=== PATIENT | female | born 1960 | race Caucasian/White ===

== ENCOUNTER 2016-11-22 10:00 | Outpatient (RCR) ==
--- NOTE | 2016-11-16 14:15 | RS.OPPTEV2 ---
Date of Note: 11/14/16 Visit #: 1 Date of Evaluation: 11/14/16 Payer Source: MEDICARE Treatment Diagnosis: Right shoulder pain, right shoulder stiffness History of Condition/Mechanism of Injury:: Patient progressive right shoulder pain since 2014. She received an injection in the right shoulder two weeks ago. Prior Level of Function.....Patient was independent with: ADL's, Self Care, Caregiving, Ambulation/Mobility, Community Integration/Access Functional Limitations: Sleep, Self Care, ADL's, Reaching, Pushing, Pulling, Lifting, Carrying, Community Access/Integration Current Subjective/complaints:: Patient reports right shoulder pain. States her movement and level of discomfort have been better since receiving the injection. States she is right hand dominant and any reaching or lifting, causes increased pain. States she has difficulty with ADL's and some selfcare due to pain with use of the right UE. States she cannot tolerate laying on the right shoulder. She has slept in the recliner at times, due to difficulty sleeping in her bed. Treatment Side (optional): Right Medical History Medical History: Hypertension, Diabetes, Arthritis Surgical History: Cholecystectomy, Tonsillectomy Surgical History Comments:: ORIF right foot Hx Home Medications: Gabapentin, Metformin, Lisinopril, Aspirin Patient's Goals: Her goal is to get relief of right shoulder pain. Pain Assessment - Pain Description Pain Location: right shoulder Pain Description: Sharp (with certain movements), Aching Current Pain Intensity: 5/10 Worst Pain Intensity: 9/10 Functional Outcome Measure UE Functional Index: 43 (43/80=46.25% impairment) - G Codes & Severity Modifier G Codes & Modifier: Carry current CK. Carry goal CI Source of G Code score: UE functional index Observation - Observation Posture: Forward Head, Rounded Shoulders Handedness: Right Shoulder ROM: Left WFL's Shoulder Muscle Strength: Left WFL's - Right Shoulder ROM Right Shoulder Flexion: 113 (degrees AROM) Right Shoulder Abduction: 56 (degrees AROM) Right Shoulder Internal Rotation: 50 (degrees AROM) Right Shoulder External Rotation: 40 (degrees AROM) Right Shoulder ROM Limitations: Pain Comments: ER limited by pain and muscle tightness. Flexion and abduction limited by pain. PROM is also limited due to pain and muscle tightness into ER to 45-50 degrees. PROM into flexion to 120 degrees, abduction to 80 degrees. - Right Shoulder Strength Right Shoulder Flexion: 4+ Good + Right Shoulder Extension: 5 Normal Right Shoulder Abduction: 4 Good Right Shoulder Adduction: 5 Normal Right Shoulder External Rotation: 4 Good Right Shoulder Internal Rotation: 4 Good - Special Tests Shoulder Empty Can (Supraspinatus) Test: Negative Left, Positive Right Shoulder Speed's Sign Test: Negative Left, Positive Right Shoulder Drop Arm Test: Negative Left, Negative Right Shoulder Gilliland-Jamin Impingement Test: Negative Left, Positive Right Palpation Comments:: Reports tenderness over the long head of the biceps tendon in the bicipital groove of the right shoulder. Reports no tenderness over the insertion site of the supraspinatus and infraspinatus tendons. Sensation - Sensation Right Upper Extremity: Intact/Normal Left Upper Extremity: Intact/Normal - Treatment Modality: Ultrasound Parameters/Method Applied: 1.5 w/cm2 continuous X 9 mins to right anterior and middle shoulder region. Patient Position: Sitting Interventions - Exercise/Activities/Manual Therapy Exercises/Activities: Patient instructed in pendulum and RTC series for HEP. Advised to perform these in a pain-free range. Manual Therapy: NA HOME EXERCISE PROGRAM: pendulum and RTC series - Charges Total Direct Minutes: 55 mins Total Treatment Time: 55 mins Procedures billed for this date of service:: SWEETIE Mccain, Assessment Assessment: Patient presents to therapy with a diagnosis of right shoulder pain , bursitis. She reports pain with reaching and lifting with the right UE, and difficulty with ADL's. She exhibits limited AROM and PROM of the right shoulder. She exhibits involvement of the biceps tendon with a positive Speeds Test and tenderness over the bicep tendon. Special tests of Impingement and Supraspinatus tests are also positive on the right UE. She demonstrates potential to benefit from modalities to reduce inflammation and exercises to improve strength of humeral depressors and regain right shoulder AROM. Patient Education: Education of diagnosis, Body/Joint mechanics, Home Exercise Program, Home Safety, Education of Plan of Care Rehab Potential: Good Short Term Goals Goal #1: PROM of the right shoulder WFL's. Goal to be met by: 11/30/16 Goal #2: Right shoulder ER to 60 degrees. Goal to be met by: 11/30/16 Goal #3: Tenderness over the anterior region of the right shoulder decreased to min. Goal to be met by: 11/30/16 Goal #4: Pt to demonstrate improved postural awareness. Goal to be met by: 11/30/16 Fpc Goals Goal #1: Pt knows HEP and to continue ex's to maintain functional level at D/C. Goal to be met by: 12/26/16 Goal #2: Score on UE functional index improved to <19% impairment. Goal to be met by: 12/26/16 Goal #3: Patient able to use right UE for ADL's and reaching activities w/o pain. Goal to be met by: 12/26/16 Goal #4: Pt able to sleep in bed without interruption from right shoulder pain. Goal to be met by: 12/26/16 Plan - Treatment to be Provided Procedures: Therapeutic Exercises, Therapeutic Activity, Manual Therapy, Patient Education Modalities: Electrical Stimulation, Ultrasound/Phonophoresis, Cryotherapy, Hot Packs - Treatment Plan Frequency: 3 X week Duration: 4 weeks ORDER # VISITS AND/OR THROUGH DATE: 12/26/16 - Treatment Code (1) Right shoulder pain Qualifiers: Chronicity: acute Qualified Description: Acute pain of right shoulder Qualifier Code(s): (M25.511) Pain in right shoulder (2) Bursitis Qualifiers: Bursitis location: shoulder Laterality: right Qualified Description : Bursitis of right shoulder Qualifier Code(s): (M75.51) Bursitis of right shoulder (3) Biceps tendinopathy Qualifiers: Laterality: right Qualified Description: Biceps tendinopathy, right Qualifier Code(s): (M67.921) Unspecified disorder of synovium and tendon, right upper arm
--- NOTE | 2016-11-19 14:06 | RS.OPPTDN ---
Subjective Date of Note: 11/19/16 Visit #: 2 Date of Evaluation: 11/14/16 Payer Source: MEDICARE Treatment Diagnosis: Right shoulder pain, right shoulder stiffness Current Subjective/complaints:: Patient reports first treatment reduced pain and she is working on HEP as instructed. Pain Assessment - Pain Description Pain Location: right shoulder Pain Description: Sharp (with certain movements), Aching Current Pain Intensity: 5/10 - Treatment Modality: Ultrasound Parameters/Method Applied: [id number] at 1.5w/cm2 to the right shoulder joint prior to EX. Patient in sitting. Patient Position: Sitting - Heat/Cryotherapy Treatment: Hot Pack ([id number] to the right shoulder prior to US and EX. Patient in sitting. ) Interventions - Exercise/Activities/Manual Therapy Exercises/Activities: [id number] PROM of the right shoulder joint. Isometrics for shoulder add, ext, IR, and ER. Pendulum and reviewed RTC series. Ball on the wall. Total minutes of Exercise: 15mins Manual Therapy: NA HOME EXERCISE PROGRAM: pendulum and RTC series, ball on wall, isometric shoulder add and ext with pillow. - Charges Total Direct Minutes: 27mins Total Treatment Time: 42mins Procedures billed for this date of service:: HP, US, EX Assessment: Patient responding well to treatment and seems to be motivated to work on HEP. Patient Education: Home Exercise Program Patient demonstrates compliance with HEP?: Yes Short Term Goals Goal #1: PROM of the right shoulder WFL's. Goal to be met by: 11/30/16 Progress towards Goal:: Progressing Goal #2: Right shoulder ER to 60 degrees. Goal to be met by: 11/30/16 Goal #3: Tenderness over the anterior region of the right shoulder decreased to min. Goal to be met by: 11/30/16 Goal #4: Pt to demonstrate improved postural awareness. Goal to be met by: 11/30/16 Usp Goals Goal #1: Pt knows HEP and to continue ex's to maintain functional level at D/C. Goal to be met by: 12/26/16 Goal #2: Score on UE functional index improved to <19% impairment. Goal to be met by: 12/26/16 Goal #3: Patient able to use right UE for ADL's and reaching activities w/o pain. Goal to be met by: 12/26/16 Goal #4: Pt able to sleep in bed without interruption from right shoulder pain. Goal to be met by: 12/26/16 Plan PLAN OF CARE EXPIRES ON:: 12/26/16 ORDER # VISITS AND/OR THROUGH DATE: 12/26/16 PLAN: Continue Plan of Care
--- NOTE | 2016-11-22 11:17 | RS.OPPTDN ---
Subjective Date of Note: 11/22/16 Visit #: 3 Date of Evaluation: 11/14/16 Payer Source: MEDICARE Treatment Diagnosis: Right shoulder pain, right shoulder stiffness Current Subjective/complaints:: Patient reports treatment is helping reduce pain in the right shoulder. States she is working on HEP and is able to lift arm higher into flexion. Pain Assessment - Pain Description Pain Location: right shoulder Pain Description: Sharp (with certain movements), Aching Current Pain Intensity: 2-3/10 Other Comments regarding Pain:: Reports a quick pinch with some movements, but no longer has sharp pain. - Treatment Modality: Ultrasound Parameters/Method Applied: [id number] at 1.5w/cm2 to the right shoulder joint and upper arm prior to EX. Patient in sitting. Patient Position: Sitting - Heat/Cryotherapy Treatment: Hot Pack ([id number] to the right shoulder prior to US and EX. Patient in sitting. ) Interventions - Exercise/Activities/Manual Therapy Exercises/Activities: [id number] PROM of the right shoulder joint. Isometrics for shoulder add, ext, flexion, abd, IR, and ER. Right shoulder AA flexion, scaption, and abduction, multiple sets of 5reps. Total minutes of Exercise: 20mins Manual Therapy: NA HOME EXERCISE PROGRAM: pendulum and RTC series, ball on wall, isometric shoulder add and ext with pillow. Isometric shoulder IR and ER. - Charges Total Direct Minutes: 30mins Total Treatment Time: 45mins Procedures billed for this date of service:: HP, US, EX Assessment: Patient responding well to treatment and appears to be working on HEP. Patient Education: Body/Joint mechanics, Home Exercise Program, Home Safety, Activity Modification Patient demonstrates compliance with HEP?: Yes Short Term Goals Goal #1: PROM of the right shoulder WFL's. Goal to be met by: 11/30/16 Progress towards Goal:: Progressing Goal #2: Right shoulder ER to 60 degrees. Goal to be met by: 11/30/16 Progress towards Goal:: Progressing Goal #3: Tenderness over the anterior region of the right shoulder decreased to min. Goal to be met by: 11/30/16 Progress towards Goal:: Progressing Goal #4: Pt to demonstrate improved postural awareness. Goal to be met by: 11/30/16 Progress towards Goal:: Progressing Snf Goals Goal #1: Pt knows HEP and to continue ex's to maintain functional level at D/C. Goal to be met by: 12/26/16 Goal #2: Score on UE functional index improved to <19% impairment. Goal to be met by: 12/26/16 Goal #3: Patient able to use right UE for ADL's and reaching activities w/o pain. Goal to be met by: 12/26/16 Goal #4: Pt able to sleep in bed without interruption from right shoulder pain. Goal to be met by: 12/26/16 Plan PLAN OF CARE EXPIRES ON:: 12/26/16 ORDER # VISITS AND/OR THROUGH DATE: 12/26/16 PLAN: Progress Exercises (Continue modalities and progress exericse to reduce pain and increase functional use of the right UE.)
== END 2016-11-26 ==
PROVIDERS: ATTEND Orthopaedic Surgery
DX: M75.51 Bursitis of right shoulder (principal); M25.511 Pain in right shoulder

== ENCOUNTER 2016-12-07 10:00 | Outpatient (RCR) ==
--- NOTE | 2016-11-28 16:15 | RS.OPPTDN ---
Subjective Date of Note: 11/28/16 Visit #: 4 Date of Evaluation: 11/14/16 Payer Source: MEDICARE Treatment Diagnosis: Right shoulder pain, right shoulder stiffness Current Subjective/complaints:: Patient reports she is doing better with active reaching. Pain Assessment - Pain Description Pain Location: right shoulder Current Pain Intensity: 2/10 - Treatment Modality: Ultrasound Parameters/Method Applied: [id number] at 1.5w/cm2 to the right shoulder prior to EX. - Heat/Cryotherapy Treatment: Hot Pack ([id number] to the right shoulder prior to US and EX. Patient in sitting. ) Interventions - Exercise/Activities/Manual Therapy Exercises/Activities: [id number] PROM of the right shoulder joint. Isometrics for shoulder add, ext, flexion, abd, IR, and ER. Right shoulder AA flexion, scaption, and abduction, multiple sets of 5reps. Shoulder pulleys. Total minutes of Exercise: 20mins Manual Therapy: NA HOME EXERCISE PROGRAM: pendulum and RTC series, ball on wall, isometric shoulder add and ext with pillow. Isometric shoulder IR and ER. - Objective Findings Observations,measurements,etc.: Active right shoulder flexion to 160 degrees and abduction to approx 130 degrees. - Charges Total Direct Minutes: 30mins Total Treatment Time: 50mins Procedures billed for this date of service:: HP, US, EX Assessment: Patient progressing well and appears to be working on HEP. Patient Education: Home Exercise Program Patient demonstrates compliance with HEP?: Yes Short Term Goals Goal #1: PROM of the right shoulder WFL's. Goal to be met by: 11/30/16 Progress towards Goal:: Progressing Goal #2: Right shoulder ER to 60 degrees. Goal to be met by: 11/30/16 Progress towards Goal:: Progressing Goal #3: Tenderness over the anterior region of the right shoulder decreased to min. Goal to be met by: 11/30/16 Progress towards Goal:: Progressing Goal #4: Pt to demonstrate improved postural awareness. Goal to be met by: 11/30/16 Progress towards Goal:: Progressing Rn Rehab Goals Goal #1: Pt knows HEP and to continue ex's to maintain functional level at D/C. Goal to be met by: 12/26/16 Goal #2: Score on UE functional index improved to <19% impairment. Goal to be met by: 12/26/16 Goal #3: Patient able to use right UE for ADL's and reaching activities w/o pain. Goal to be met by: 12/26/16 Goal #4: Pt able to sleep in bed without interruption from right shoulder pain. Goal to be met by: 12/26/16 Plan PLAN OF CARE EXPIRES ON:: 12/26/16 ORDER # VISITS AND/OR THROUGH DATE: 12/26/16 PLAN: Continue Plan of Care (Continue to progress strength and ROM of right shoulder to increase functional activity level.)
--- NOTE | 2016-11-30 13:01 | RS.OPPTDN ---
Subjective Date of Note: 11/30/16 Visit #: 5 Date of Evaluation: 11/14/16 Payer Source: MEDICARE Treatment Diagnosis: Right shoulder pain, right shoulder stiffness Current Subjective/complaints:: Patient reports continued improvement in active reaching. States she continues to have a sharp pain with reaching outward to the side. Pain Assessment - Pain Description Pain Location: right shoulder Current Pain Intensity: 2/10 - Treatment Modality: Ultrasound Parameters/Method Applied: [id number] @ 1.5w/cm2 to the right shoulder prior to EX. Patient in sitting. Patient Position: Sitting - Heat/Cryotherapy Treatment: Hot Pack ([id number] to the right shoulder prior to US and EX. Patient in sitting. ) Interventions - Exercise/Activities/Manual Therapy Exercises/Activities: [id number] PROM of the right shoulder joint. Isometrics for shoulder add, ext, flexion, abd, IR, and ER. Right shoulder AA flexion, scaption, and abduction, multiple sets of 5reps. Wand for active flexion overhead. Red theraband for bilateral shoulder ER. Total minutes of Exercise: 20mins Manual Therapy: NA HOME EXERCISE PROGRAM: pendulum and RTC series, ball on wall, isometric shoulder add and ext with pillow. Isometric shoulder IR and ER. Red theraband for ER. - Objective Findings Observations,measurements,etc.: Patient demos active right shoulder flexion to approx 150 degrees and abduction to 134 degrees. - Charges Total Direct Minutes: 30mins Total Treatment Time: 45mins Procedures billed for this date of service:: HP, US, EX Assessment: Patient continues to respond to treatment and she appears to be working on HEP. Patient Education: Home Exercise Program Patient demonstrates compliance with HEP?: Yes Short Term Goals Goal #1: PROM of the right shoulder WFL's. Goal to be met by: 11/30/16 Progress towards Goal:: Met Goal #2: Right shoulder ER to 60 degrees. Goal to be met by: 11/30/16 Progress towards Goal:: Progressing Goal #3: Tenderness over the anterior region of the right shoulder decreased to min. Goal to be met by: 11/30/16 Progress towards Goal:: Met Goal #4: Pt to demonstrate improved postural awareness. Goal to be met by: 11/30/16 Progress towards Goal:: Progressing Jail Goals Goal #1: Pt knows HEP and to continue ex's to maintain functional level at D/C. Goal to be met by: 12/26/16 Progress towards goal: Progressing Goal #2: Score on UE functional index improved to <19% impairment. Goal to be met by: 12/26/16 Goal #3: Patient able to use right UE for ADL's and reaching activities w/o pain. Goal to be met by: 12/26/16 Goal #4: Pt able to sleep in bed without interruption from right shoulder pain. Goal to be met by: 12/26/16 Plan PLAN OF CARE EXPIRES ON:: 12/26/16 ORDER # VISITS AND/OR THROUGH DATE: 12/26/16 PLAN: Continue Plan of Care
--- NOTE | 2016-12-04 13:31 | RS.CXNS ---
Date of scheduled appointment: 12/04/16 Type: Cancel (Patient cancelled appointment today. States she has taken her to the ER.)
--- NOTE | 2016-12-07 12:04 | RS.OPPTDN ---
Subjective Date of Note: 12/07/16 Visit #: 6 Date of Evaluation: 11/14/16 Payer Source: MEDICARE Treatment Diagnosis: Right shoulder pain, right shoulder stiffness Current Subjective/complaints:: Patient reports she has progressed well and is able to do most daily activities. She is pleased with how she is doing and will continue HEP after discharge. Pain Assessment - Pain Description Pain Location: right shoulder Current Pain Intensity: 1-2/10 with reaching - Treatment Modality: Ultrasound Parameters/Method Applied: [id number] at 1.5w/cm2 to the right shoulder joint prior to EX. Patient in sitting. Patient Position: Sitting - Heat/Cryotherapy Treatment: Hot Pack ([id number] to the right shoulder prior to US and EX. Patient in sitting. ) Interventions - Exercise/Activities/Manual Therapy Exercises/Activities: [id number] PROM of the right shoulder joint. Isometrics for shoulder add, ext, flexion, abd, IR, and ER. Right shoulder AA flexion, scaption, and abduction, multiple sets of 5reps. Wand for active flexion overhead. Red theraband for bilateral shoulder ER. Ball on the wall. [place]oulder pulleys. Total minutes of Exercise: 20mins Manual Therapy: NA HOME EXERCISE PROGRAM: pendulum and RTC series, ball on wall, isometric shoulder add and ext with pillow. Isometric shoulder IR and ER. Red theraband for ER. Ball on wall. - Objective Findings Observations,measurements,etc.: Passive right shoulder flexion 158-160 degrees. 4+ to 5/5 MMT right shoulder below 90 degrees flexion. Patient improved score on Upper Extremity FOM to 68/80 or 15% impairment (was 43/80 or 46.25% on Eval). - Charges Total Direct Minutes: 30mins Total Treatment Time: 50mins Procedures billed for this date of service:: HP, US, EX Assessment: Patient has progressed well and benefitted from treatment. She has met 7 of 8 treatment goals. She will need to continue HEP to further progress ROM. Patient Education: Home Exercise Program, Home Safety, Activity Modification, Education of Plan of Care Patient demonstrates compliance with HEP?: Yes Short Term Goals Goal #1: PROM of the right shoulder WFL's. Goal to be met by: 11/30/16 Progress towards Goal:: Met Goal #2: Right shoulder ER to 60 degrees. Goal to be met by: 11/30/16 Progress towards Goal:: Met Goal #3: Tenderness over the anterior region of the right shoulder decreased to min. Goal to be met by: 11/30/16 Progress towards Goal:: Met Goal #4: Pt to demonstrate improved postural awareness. Goal to be met by: 11/30/16 Progress towards Goal:: Met Pediatric Ophthalmologist Goals Goal #1: Pt knows HEP and to continue ex's to maintain functional level at D/C. Goal to be met by: 12/26/16 Progress towards goal: Met Goal #2: Score on UE functional index improved to <19% impairment. Goal to be met by: 12/26/16 Progress towards goal: Met Goal #3: Patient able to use right UE for ADL's and reaching activities w/o pain. Goal to be met by: 12/26/16 (75%) Progress towards goal: Progressing Goal #4: Pt able to sleep in bed without interruption from right shoulder pain. Goal to be met by: 12/26/16 Progress towards goal: Met Plan PLAN OF CARE EXPIRES ON:: 12/26/16 ORDER # VISITS AND/OR THROUGH DATE: 12/26/16 PLAN: Plan for Discharge (Discharge with HEP due to good progress.)
== END 2016-12-27 ==
PROVIDERS: ATTEND Orthopaedic Surgery
DX: M75.51 Bursitis of right shoulder (principal); M25.511 Pain in right shoulder

== ENCOUNTER 2016-12-14 09:26 | Outpatient (CLI) | END 2016-12-14 09:27 | LOC: RAD 09:26 | PROVIDERS: ATTEND Internal Medicine | DX: Z12.31 Encounter for screening mammogram for malignant neoplasm of breast (principal) | CPT/HCPCS: 77067 ==

== ENCOUNTER 2017-08-04 11:35 | Emergency (ER) ==
[2017-08-04 11:44] VITALS: BP 135/84; TEMP 98.3; BMI 43.2
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
[2017-08-04] MEDS ORDERED: NORFLEX IM STA (12:09)
[2017-08-04] MEDS ORDERED: TORADOL IM STA (12:09)
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
[2017-08-04] MEDS ORDERED: SUBLIMAZE IVP STA (13:39)
[2017-08-04] MEDS ORDERED: SODIUM CHLORIDE 1,000 ML IV STA (13:40)
[2017-08-04] MEDS ORDERED: ZOFRAN 4 MG/2 ML IVP STA (13:40)
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
== END 2017-08-04 12:56 | disposition home or self-care (01) ==
LOC: ED 11:35
DX: S09.90XA Unspecified injury of head, initial encounter (principal); S16.1XXA Strain of muscle, fascia and tendon at neck level, initial encounter; S60.011A Contusion of right thumb without damage to nail, initial encounter; V43.52XA Car driver injured in collision with other type car in traffic accident, initial encounter
CPT/HCPCS: 96372; 99283

== ENCOUNTER 2018-02-06 09:02 | Outpatient (CLI) | payer OTHER ==
--- NOTE | 2018-02-07 10:13 | MAMMO ---
EXAM: Bilateral digital screening mammogram (2-D and 3-D) History: Screening Comparison: Bilateral mammogram 12/14/2016 Findings: MLO and CC views of bilateral breasts demonstrate scattered fibroglandular breast parenchy ma. CAD was reviewed by the radiologist. Tomosynthesis was performed. Stable benign bilateral [address] st lymph nodes. There are no dominant masses, no suspicious microcalcifications and no architectural distortions. Impression: Benign stable mammogram. Recommend followup routine screening mammography in 1 year. BIRADS 2
== END 2018-02-06 09:03 | disposition home or self-care (01) ==
LOC: RAD 09:02
PROVIDERS: ATTEND Internal Medicine
DX: Z12.31 Encounter for screening mammogram for malignant neoplasm of breast (principal)
CPT/HCPCS: 77067

== ENCOUNTER 2018-08-25 08:49 | Emergency (ER) | payer OTHER ==
[2018-08-25 08:53] VITALS: BP 119/77; TEMP 98.2; BMI 41.7
--- NOTE | 2018-08-25 08:58 | ED.PDOC ---
General ED Provider: Dr. STACI BLACK Chief Complaint: Tooth Problem Stated Complaint: dental pain facial edema history of dental extraction Time Seen by Physician: 08:50 (seen with arabella photos enclosed ) Mode of Arrival: Walk-In Information Source: Patient Exam Limitations: No limitations Primary Care Provider: FRITZ HARRISON Nursing and Triage Documentation Reviewed and Agree: Yes Does patient meet sepsis criteria?: No System Inflammatory Response Syndrome: Not Applicable Sepsis Protocol: For patient's 13 years and over: Temp is 96.8 and below OR 101 and greater Pulse >90 BPM Resp >20/minute Acutely Altered Mental Status Are patient's symptoms suggestive of a new infection, such as: -Pneumonia -Skin, Soft Tissue -Endocarditis -UTI -Bone, Joint Infection -Implantable Device -Acute Abdominal Infection -Wound Infection -Meningitis -Blood Stream Catheter Infection -Unknown EENT Complaint Exam - Dental/Oral Complaint/Exam Mechanism of Injury: No known trauma Onset/Duration: 2 days Timing: Constant Initial Severity: Mild Current Severity: Mild Character: Reports: Aching Aggravating: Reports: None Alleviating: Reports: None Associated Signs and Symptoms: Reports: Swelling (minor left face ) Related History: Reports: Previous tooth problem Cardiac Risk Factors: Reports: None Dental/Oral Surgical History: Reports: None Cervical Lymphadenopathy Present: No Facial Swelling Present: No Bleeding Present: No Septal Hematoma: No Foreign Body Present: No Dysphagia Present: No Drooling Present: No Asymmetrical Tonsillar Swelling Present: No Uvula Midline: Yes Odalis-tonsillar Fluctuence: No Trismus Present: No Palatal Petechiae Present: No Scarlatinaform Rash Present: No Lesions: Absent: Lip, Gums, Tongue, Buccal Mucosa, Pharynx Exanthem: Absent: Lip, Gums, Tongue, Buccal Mucosa, Pharynx Vesicles: Absent: Lip, Gums, Tongue, Buccal Mucosa, Pharynx Review of Systems - Review Of Systems Constitutional: Reports: No symptoms Eyes: Reports: No symptoms Ears, Nose, Mouth, Throat: Reports: No symptoms Respiratory: Reports: No symptoms Cardiac: Reports: No symptoms GI: Reports: No symptoms : Reports: No symptoms Musculoskeletal: Reports: No symptoms Skin: Reports: No symptoms Neurological: Reports: No symptoms Endocrine: Reports: No symptoms Hematologic/Lymphatic: Reports: No symptoms All Other Systems: Reviewed and Negative Past Medical History - Past Medical History Endocrine: Reports: DM 2 Cardiovascular: Reports: Hypertension Respiratory: Reports: None Hematological: Reports: Anemia Gastrointestinal: Reports: None Genitourinary: Reports: None Neuro/Psych: Reports: None Musculoskeletal: Reports: Arthritis Cancer: Reports: None Last Menstrual Period: n/a - Surgical History General Surgical History: Reports: Tubal ligation, Tonsillectomy, Orthopedic ( Plate in the right foot. ), Other (Cyst removal ) - Family History Family History: Reports: Unknown - Social History Smoking Status: Former smoker Hx Substance Use: No Alcohol Screening: None Physical Exam - Physical Exam Appearance: Well-appearing, No pain distress, Well-nourished Eyes: ROYAL, EOMI, Conjunctiva clear ENT: Ears normal, Nose normal, Oropharynx normal Respiratory: Airway patent, Breath sounds clear, Breath sounds equal, Respirations nonlabored Cardiovascular: RRR, Pulses normal, No rub, No murmur GI/: Soft, Nontender, No masses, Bowel sounds normal, No Organomegaly Musculoskeletal: Normal strength, ROM intact, No calf tenderness, Edema (facial edema minimal left side ) Skin: Warm, Dry, Normal color Neurological: Sensation intact, Motor intact, Reflexes intact, Cranial nerves intact, Alert, Oriented Psychiatric: Affect appropriate, Mood appropriate Critical Care Note - Critical Care Note Total Time (mins): 0 Course - Course Vital Signs: Temp Pulse Resp BP Pulse Ox 08/25/18 08:49 98.2 F 83 20 119/77 95 Departure - Departure Time of Disposition: 08:58 (photos ) Disposition: HOME SELF-CARE Discharge Problem: Toothache Instructions: Toothache (ED) Condition: Good Pt referred to PMD for follow-up: Yes IPMP verified?: No Additional Instructions: Please call your Family Physician as soon as possible to schedule a follow-up appointment. Allergies/Adverse Reactions: Allergies Penicillins Adverse Reaction (Verified 08/25/18 08:53) Sulfa (Sulfonamide Antibiotics) Adverse Reaction (Verified 08/25/18 08:53) Home Medications: Ambulatory Orders Aspirin [Aspir-Low] 81 mg PO DAILY 08/04/17 Canagliflozin [Invokana] 300 mg PO DAILY 08/04/17 Cyclobenzaprine HCl [Flexeril] 10 mg PO DAILY PRN #20 tablet 08/04/17 Gabapentin 300 mg PO TID 08/04/17 Insulin Detemir [Levemir Flextouch] 30 units SQ DAILY 08/04/17 Lisinopril [Zestril] 5 mg PO DAILY 08/04/17 Meclizine HCl [Travel Sickness] 25 mg PO BID 08/04/17 Metformin HCl [Metformin ER Gastric] 1,000 mg PO BID BREAKFAST&LUNCH 08/04/17 Potassium Chloride 10 meq PO DAILY 08/04/17 Rosuvastatin Calcium 20 mg PO DAILY 08/04/17 Sitagliptin Phosphate [Januvia] 100 mg PO DAILY 08/04/17 Valsartan/Hydrochlorothiazide [Valsartan-Hctz 80-12.5 mg Tab] 80 mg PO DAILY 12/14 Disposition Discussed With: Patient
== END 2018-08-25 09:12 | disposition home or self-care (01) ==
LOC: ED 08:49
DX: K08.89 Other specified disorders of teeth and supporting structures (principal); R60.0 Localized edema
CPT/HCPCS: 99282

== ENCOUNTER 2018-12-02 08:58 | Day surgery (SDC) | payer OTHER ==
[2018-12-02 09:31] VITALS: TEMP 97.6
[2018-12-02] MEDS ORDERED: LIDOCAINE 1% 20 ML MDV ID STA (09:31)
[2018-12-02] MEDS ORDERED: DIPRIVAN 20 ML VIAL IVP ONE (11:20)
[2018-12-02 12:09] VITALS: BP 93/60
--- NOTE | 2018-12-03 10:50 | OP ---
INDICATIONS FOR PROCEDURE: 58-year-old female presents for colonoscopy exam. She is scheduled for screening exam. MEDICATIONS: SEE ANESTHESIA NOTES. PROCEDURE: COLONOSCOPY, SNARE POLYPECTOMY. REPORT: The risks, benefits, alternatives and limitations were discussed in detail with the patient. Informed consent was obtained. After adequate sedation was achieved, a digital rectal exam revealed good tone, no masses. The colonoscope was introduced into the rectum and advanced under direct visual guidance to the cecum. The cecum was identified by the appendiceal orifice and IC valve. I then slowly withdrew the scope in a circumferential manner examining the mucosa quite carefully. I looked on the proximal and distal side of folds and flexures as best as possible. I was able to retroflex the scope in the right colon and left colon to increase visualization. In the proximal transverse colon I encountered two 5 mm sessile polyps, both of these were removed by snare technique. In the mid to distal transverse colon there was some retained semi solid stool. This was washed and suctioned off as best as possible to increase visualization. Visualization from the descending down to the rectum was good. In the rectum on retroflex view there were two small polyps, one about 5 mm in size and semi sessile and another one about 3 mm in size. I destroyed the 3 mm one using a hot snare and a 5 mm one was resected and retrieved using the snare. The exam was otherwise unremarkable in forward and retroflex views. The prep was good in most places other than the transverse colon as described above which was adequate after washing. The withdrawal time was 10 minutes and 35 seconds. IMPRESSION: 1. Four (4) small polyps removed. RECOMMENDATIONS: 1. High fiber diet. 2. Office visit as needed. 3. Await pathology results. If there are adenomatous changes, I recommend a repeat examination again in three years, if there are all hyperplastic changes then I suggest a examination again no later than 5 years considering the prep, sooner if there are any signs or symptoms to indicate otherwise. CC: DR. HUNTER BLANK
== END 2018-12-02 12:30 | disposition home or self-care (01) ==
LOC: SURG 08:58
PROVIDERS: ATTEND Internal Medicine Gastroenterology
DX: Z12.11 Encounter for screening for malignant neoplasm of colon (principal); D12.3 Benign neoplasm of transverse colon; K63.5 Polyp of colon